=== PATIENT | female | born 1950 | race Caucasian/White ===

== ENCOUNTER 2018-04-18 13:17 | Emergency (ER) | payer MEDICARE, BC ==
--- OUTSIDE RECORDS SUMMARY | 2018-04-18 13:52 | XMS REPORT ---
:1950 External Reference #:[id number] Author Organization [facility] Address [address] [place] [address] Phone [phone] Care Team Providers Name Role Phone Demi Amaral NP Care Team Information Elevator Dispatcher Unavailable Payers Type Date Identification Numbers Payment Provider Subscriber Medicare Primary Effective: Policy Number: Medicare - [place] Deepika Boone 2015 [id number] [facility] PayID: [id number] [place] [address] Medigap Part B Policy Number: [id number] [facility] Deepika Boone Group Name: [place] [address] [address] PayID: [id number] [place] [address] Problems Date Description Provider Status Onset: 08/23/2011 Neck pain Lien Hess M.D. Active Onset: 08/23/2011 Generalized anxiety disorder Lien Hess M.D. Active Onset: 08/23/2011 Depressive disorder Lien Hess M.D. Active Onset: 08/23/2011 Osteoporosis Lien Hess M.D. 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 Cigarette Use Former Cigarette Smoker stopped early 's ETOH Use Occasionally consumes alcohol Recreational Drug Use Denies Drug Use Smoking Patient is a former smoker Daily Caffeine Consumes on average 1 cup of coffee per day Enjoy Exercising hikes, yoga Allergies, Adverse Reactions, Alerts Date Description Reaction Status Severity Comments 07/28/2011 Penicillin rash active 07/28/2011 Sulfa leukopenia active 08/23/2011 NSAIDs Rash active Mild to Moderate Medications Medication Date Status Form Strength Qnty SIG Indications Ordering Provider Naproxen 12/15 Active Tablets 500mg 180ta take 1 M54.2 bs tablet Sravanthi, twice a [employer] day, take with food Flaxseed Oil 09/17 Active Capsules 1000mg Sravanthi, [employer] Oxycodone-Acetami 01/06 Active Tablets 5-325mg 20tab 1 by mouth Francisco nophen s every 4-6 Heetderks, hours as MD needed severe pain Cyclobenzaprine 07/01 Active Tablets 10mg 60tab take 09/13 or M54.2 Marcia HCL s 1 tablet by Sravanthi, mouth three [employer] times a day as needed for muscle spasm (will cause tiredness) Zofran Odt 03/14 Active Tablets 4mg 20tab one by Marcia Dispers s mouth on Sravanthi, tongue up [employer] to three times a day as needed nausea Cetirizine HCL 03/14 Active Tablets 10mg one by Leonila mouth every P. Blegen, day for M.D. allergies Proctosol HC 02/27 Active Cream 2.5% 80gra apply to 455.4 Lien m affected MCong Hess, area tid M.D. Sumatriptan 08/23 Active Tablets 50mg 27tab Take 1 s Tablet AT , Start Of EKG TECHNICIAN Amigraine Wellbutrin SR Active Tablets 150mg 180ta 1 tab Marcia ER 12HR bs morning and Sravanthi, 1 tab in at [employer] night Lorazepam Active Tablets 1mg 270ta 1 by mouth F41.9 Demi bs three times Shortle, a day as EKG TECHNICIAN needed code a Vitamin D-3 Active Tablets 2000Unit 1 po daily Unknown Calcium Carbonate Active Tablets 600mg 2 po q am Multivitamins Active Tablets 1 po qd Vitamin C Active Tablets 1000mg 1 tab po daily Sertraline HCL Active Tablets 100mg 180ta take 2 Marcia bs tablet Sravanthi, daily [employer] Aishwarya [place] 06/28 Hx Capsules 100mg 45cap take 1 s capsule by Santos, - mouth 3 12/15 times per day as needed for cough Voltaren 04/26 Hx Gel 1% 300gm apply 4 grams to Sravanthi, - right ankle [employer] 09/17 4 times daily, do not exceed 16 grams/day Carafate 03/22 Hx Tablets 1gm 180ta take 1-2 K21.9 bs tablets Sravanthi, - every 4-6 [employer] 10/25 hours needed. Mobic 03/22 Hx Tablets 15mg 30tab Take one 530.81 Lien s pill po Koby Hess, - daily M.D. 07/01 Oxycodone-Acetami 03/13 Hx Tablets 5-325mg 1 PO Q 4-6 Unknown nop Hours prn - Severe Pain 07/01 (Rx By ER- #20) Naproxen 02/11 Hx Tablets 500mg 60tab Take one 719.44 DR santiago pill twice Sravanthi, - daily. [employer] 03/22 Custom Wrist 06/20 Hx 1unit Use as Lien Splint /2012 s directed. Koby Hess, - Dx: Pain in M.D. 07/01 the wrist and hand Naproxen Ec 05/25 Hx Tablets 500mg 60tab Take one 719.[address] santiago pill twice Koby Hess, - daily. M.D. 02/11 Cyclobenzaprine 09/22 Hx Tablets 5mg 30tab take one or 723.1 Lien HCL /2012 s two tablets Koby Hess, - every 6 M.D. 07/01 hours needed for muscle spasm Hydroxyzine HCL 04/21 Hx Tablets 25mg 60tab 1 or 2 po 989.5 Shawnti R. /2011 s qid prn Storm, - itching [employer] 07/01 Prednisone 01/10 Hx Tablets 20mg 10tab 2 tabs po 995.3 Marcia /2012 s for 5 days Jesse FishmanP-C 09/22 Tramadol HCL 08/23 Hx Tablets 50mg 60tab one 723.1 Lien s tramadol po Juan JoseCong Deshawn, - every 8 M.D. 03/14 hours needed Prednisone 08/10 Hx Tablets 10mg 42QS 6 tabs po 995.3 Lien qd x 2 Koby Hess, - days, 5 M.D. 08/23 tabs x 2 days, 4 tab x 2 days, 3 tabs x 2 days, 2 tabs x 2 days, 1 tab x 2 days take with food Robaxin 08/04 Hx Tablets 500mg 30tab take on tab 723.1 s po qid Sravanthi, - [employer] 08/23 Cyclobenzaprine 07/28 Hx Tablets 5mg 30tab 1-2 po tid 723.1 Marcia s for muscle Sravanthi, - spasm, january [employer] 08/04 cause drowsiness Naproxen 07/28 Hx Tablets 500mg 30tab take 1 723.1 s tablet bid, Sravanthi, - take with [employer] 08/23 Hydrocodone/Aceta 07/28 Hx Tablets 5-325mg 30thi 1-2 po 723.1 Marcia rty q4hrs prn Jesse FishmanP-C 08/23 Sucralfate Hx Tablets 1gm Take 2 po Unknown /0000 every am - 03/14 Sertraline HCL 00 Hx Tablets 50mg 30tab 1 po qd Unknown / s - 06/29 Seroquel Hx Tablets 50mg 90tab 1 tab po hs Marcia s Jesse Fishman [employer] 03/14 Imitrex 00 Hx Tablets 50mg 1 tab po Unknown /0000 - 07/01 Activella Hx Tablets 1-0.5mg 1 po qd Unknown / - 08/23 Lactaid 00 Hx 1 po prn Unknown / - 09/17 Pollinosan 00/00 Hx Unknown /0000 - 03/14 Wellbutrin XL 00 Hx Tablets 300mg 1 tablet by Unknown /0000 ER 24HR mouth every - in the 06/28 Aripiprazole 00/00 Hx Tablets 2mg 1 po qd Unknown /0000 - 01/16 Immunizations CPT Code Status Date Vaccine Lot # [id number] Given 12/15/2016 Pneumovax 23 (PPSV23) 65+ years or high risk 2 to [id number] 64 year old [address]6547 Given 07/05/2016 Influenza Vaccine High Dose PF [id number] 93524 Given 09/17/2015 Prevnar-13 Pneumococcal Conjugate Vaccine [id number] 97216 Given 07/17/2015 Influenza Virus Vaccine, Quadrivalent, 3 Yr > [id number] Quad, Preserv Free 91586 Given 07/01/2014 Zoster Vaccine [id number] 35115 Given 07/01/2014 Influenza Virus Vaccine, Quadrivalent, 3 Yr > [id number] Quad, Preserv Free 04398 Given 08/02/2013 Tdap (Adacel) [id number] 61014 Given 05/25/2013 Influenza Vaccine-Preservative Free 3 Yrs And [id number] Above 12625 Given 08/11/2012 Influenza Vaccine-Preservative Free 3 Yrs And [id number] Above 60023 Given 07/28/2011 Influenza Vaccine-Preservative Free 3 Yrs And [id number] Above 45897 Refused 03/08/2018 Influenza Virus Vaccine, Quadrivalent, Split, 6-35 Mo, PF Vital Signs Date Vital Result Comment 03/20/2018 Weight 157.00 lb Weight in kg's 71.215 BP Systolic 112 mmHg BP Diastolic 72 mmHg Heart Rate 92 /min Body Temperature 98.2 F Respiratory Rate 18 /min Height 67 inches 5'7" BMI (Body Mass Index) 24.6 kg/m2 O2 % BldC Oximetry 98 % 03/08/2018 Weight 158.00 lb Weight in kg's 71.669 BP Systolic 120 mmHg BP Diastolic 80 mmHg Heart Rate 96 /min Body Temperature 97.6 F Respiratory Rate 16 /min 10/25/2017 Weight 157.00 lb w/ boots Weight in kg's 71.215 BP Systolic 134 mmHg BP Diastolic 82 mmHg Heart Rate 79 /min Body Temperature 98.2 F Respiratory Rate 16 /min O2 % BldC Oximetry 98 % 12/15/2016 Weight 139.00 lb Weight in kg's 63.050 BP Systolic 110 mmHg BP Diastolic 60 mmHg Heart Rate 98 /min Body Temperature 97.8 F Respiratory Rate 18 /min Height 67 inches 5'7" BMI (Body Mass Index) 21.8 kg/m2 O2 % BldC Oximetry 97 % 07/05/2016 Weight 133.00 lb Weight in kg's 60.329 BP Systolic 100 mmHg BP Diastolic 70 mmHg Heart Rate 95 /min Body Temperature 97.4 F Respiratory Rate 12 /min O2 % BldC Oximetry 99 % 06/28/2016 Weight 136.00 lb Weight in kg's 61.690 BP Systolic 120 mmHg BP Diastolic 78 mmHg Heart Rate 85 /min Body Temperature 97.8 F Respiratory Rate 16 /min O2 % BldC Oximetry 99 % 09/17/2015 Weight 149.00 lb Weight in kg's 67.586 BP Systolic 110 mmHg BP Diastolic 74 mmHg Heart Rate 88 /min Height 67.5 inches 5'7.50" BMI (Body Mass Index) 23.0 kg/m2 01/06/2015 Weight 160.00 lb Weight in kg's 72.576 BP Systolic 122 mmHg BP Diastolic 76 mmHg Heart Rate 92 /min Body Temperature 98.4 F 07/04/2014 Weight 156.00 lb Weight in kg's 70.762 BP Systolic 112 mmHg BP Diastolic 70 mmHg Heart Rate 92 /min 07/01/2014 Weight 153.00 lb Weight in kg's 69.401 BP Systolic 118 mmHg BP Diastolic 80 mmHg Heart Rate 80 /min Height 67.25 inches 5'7.25" BMI (Body Mass Index) 23.8 kg/m2 03/22/2014 Weight 157.00 lb Weight in kg's 71.215 BP Systolic 118 mmHg BP Diastolic 62 mmHg Heart Rate 88 /min Body Temperature 98.0 F 03/14/2014 Weight 153.00 lb Weight in kg's 69.401 BP Systolic 132 mmHg BP Diastolic 88 mmHg Heart Rate 88 /min Body Temperature 96.5 F 02/11/2014 Weight 151.00 lb Weight in kg's 68.494 BP Systolic 112 mmHg BP Diastolic 70 mmHg Heart Rate 84 /min Body Temperature 98.0 F 05/25/2013 Weight 143.00 lb Weight in kg's 64.865 BP Systolic 110 mmHg BP Diastolic 74 mmHg Heart Rate 88 /min Body Temperature 97.1 F Height 67.25 inches 5'7.25" BMI (Body Mass Index) 22.2 kg/m2 10/26/2012 Weight 140.00 lb Weight in kg's 63.504 BP Systolic 130 mmHg BP Diastolic 76 mmHg Heart Rate 76 /min 10/20/2012 Weight 142.00 lb Weight in kg's 64.411 BP Systolic 114 mmHg BP Diastolic 70 mmHg Heart Rate 92 /min 10/16/2012 Weight 142.00 lb Weight in kg's 64.411 BP Systolic 118 mmHg BP Diastolic 82 mmHg Heart Rate 92 /min 10/09/2012 Weight 144.00 lb Weight in kg's 65.318 BP Systolic 128 mmHg BP Diastolic 70 mmHg Heart Rate 88 /min 10/06/2012 Weight 144.00 lb Weight in kg's 65.318 BP Systolic 114 mmHg BP Diastolic 74 mmHg Heart Rate 92 /min 10/02/2012 Weight 145.00 lb Weight in kg's 65.772 BP Systolic 106 mmHg BP Diastolic 64 mmHg Heart Rate 84 /min 09/25/2012 Weight 145.00 lb Weight in kg's 65.772 BP Systolic 124 mmHg BP Diastolic 80 mmHg Heart Rate 88 /min 09/22/2012 Weight 141.00 lb Weight in kg's 63.958 BP Systolic 140 mmHg BP Diastolic 84 mmHg Heart Rate 92 /min Body Temperature 97.4 F 04/21/2012 Weight 146.00 lb Weight in kg's 66.226 BP Systolic 108 mmHg BP Diastolic 80 mmHg Heart Rate 96 /min Body Temperature 98.7 F 01/11/2012 Weight 144.00 lb Weight in kg's 65.318 BP Systolic 110 mmHg BP Diastolic 60 mmHg Heart Rate 100 /min Body Temperature 97.7 F 08/23/2011 Weight 153.00 lb Weight in kg's 69.401 BP Systolic 140 mmHg BP Diastolic 70 mmHg Heart Rate 92 /min Height 67.75 inches 5'7.75" BMI (Body Mass Index) 23.4 kg/m2 08/18/2011 Weight 150.00 lb Weight in kg's 68.040 BP Systolic 134 mmHg BP Diastolic 78 mmHg Heart Rate 92 /min 08/10/2011 Weight 154.00 lb Weight in kg's 69.854 BP Systolic 128 mmHg BP Diastolic 76 mmHg Heart Rate 70 /min Body Temperature 98.7 F 08/04/2011 Weight 150.00 lb Weight in kg's 68.040 BP Systolic 140 mmHg BP Diastolic 80 mmHg Heart Rate 112 /min Body Temperature 97.2 F 07/28/2011 Weight 148.00 lb Weight in kg's 67.133 BP Systolic 122 mmHg BP Diastolic 80 mmHg Heart Rate 91 /min Last Menstrual Period 0 O2 % BldC Oximetry 99 % Results Test Date Test Result H/L Range Note CBC Auto Diff 10/25/2017 White Blood Count 3.7 10^3/uL 3.5-10.8 1 Red Blood Count 4.44 10^6/uL 4.0-5.4 1 Hemoglobin 14.0 g/dL 12.0-16.0 1 Hematocrit 42 % 35-47 1 Mean Corpuscular Volume 94 fL 80-97 1 Mean Corpuscular Hemoglobin 32 pg High 27-31 1 Mean Corpuscular HGB Conc 33 g/dL 31-36 1 Red Cell Distribution Width 13 % 10.5-15 1 Platelet Count 192 10^3/uL 150-450 1 Mean Platelet Volume 8 um3 7.4-10.4 1 Abs Neutrophils 2.2 10^3/uL 1.5-7.7 1 Abs Lymphocytes 1.1 10^3/uL 1.0-4.8 1 Abs Monocytes 0.3 10^3/uL 0-0.8 1 Abs Eosinophils 0.1 10^3/uL 0-0.6 1 Abs Basophils 0 10^3/uL 0-0.2 1 Abs Nucleated RBC 0 10^3/uL 1 Granulocyte % 60.2 % 38-83 1 Lymphocyte % 30.4 % 25-47 1 Monocyte % 7.2 % 1-9 1 Eosinophil % 1.8 % 0-6 1 Basophil % 0.4 % 0-2 1 Nucleated Red Blood Cells % 0.2 1 Lipid Profile (Trig/Chol/HDL) 10/25/2017 Triglycerides 99 mg/dL 1, 2 Cholesterol 192 mg/dL 1, 3 HDL Cholesterol 59.2 mg/dL 1, 4 LDL Cholesterol 113 mg/dL 1, 5 Comp Metabolic Panel 10/25/2017 Sodium 139 mmol/L 133-145 1 Potassium 4.4 mmol/L 3.5-5.0 1 Chloride 104 mmol/L 101-111 1 Co2 Carbon Dioxide 28 mmol/L 22-32 1 Anion Gap 7 mmol/L 2-11 1 Glucose 89 mg/dL 70-100 1 Blood Urea Nitrogen 12 mg/dL 6-24 1 Creatinine 0.86 mg/dL 0.51-0.95 1 BUN/Creatinine Ratio 14.0 8-20 1 Calcium 9.6 mg/dL 8.6-10.3 1 Total Protein 6.7 g/dL 6.4-8.9 1 Albumin 4.3 g/dL 3.2-5.2 1 Globulin 2.4 g/dL 2-4 1 Albumin/Globulin Ratio 1.8 1-3 1 Total Bilirubin 0.30 mg/dL 0.2-1.0 1 Alkaline Phosphatase 66 U/L 34-104 1 Alt 10 U/L 7-52 1 Ast 18 U/L 13-39 1 Egfr Non- 65.8 >60 1 Egfr 84.6 >60 1, 6 Laboratory test 10/25/2017 TSH (Thyroid 1.71 mcIU/mL 0.34-5.60 1, 7 finding Stimulating Horm) CBC Auto Diff 12/15/2016 White Blood Count 3.2 10^3/uL Low 3.5-10.8 8 Red Blood Count 4.34 10^6/uL 4.0-5.4 Hemoglobin 13.5 g/dL 12.0-16.0 Hematocrit 41 % 35-47 Mean Corpuscular Volume 95 fL 80-97 Mean Corpuscular Hemoglobin 31 pg 27-31 Mean Corpuscular HGB Conc 33 g/dL 31-36 Red Cell Distribution Width 13 % 10.5-15 Platelet Count 164 10^3/uL 150-450 Mean Platelet Volume 9 um3 7.4-10.4 Abs Neutrophils 2.0 10^3/uL 1.5-7.7 Abs Lymphocytes 0.9 10^3/uL Low 1.0-4.8 Abs Monocytes 0.3 10^3/uL 0-0.8 Abs Eosinophils 0.1 10^3/uL 0-0.6 Abs Basophils 0 10^3/uL 0-0.2 Abs Nucleated RBC 0 10^3/uL Granulocyte % 61.0 % 38-83 Lymphocyte % 27.8 % 25-47 Monocyte % 9.1 % High 1-9 Eosinophil % 1.6 % 0-6 Basophil % 0.5 % 0-2 Nucleated Red Blood Cells % 0 Comp Metabolic Panel 12/15/2016 Sodium 137 mmol/L 133-145 Potassium 4.4 mmol/L 3.5-5.0 Chloride 104 mmol/L 101-111 Co2 Carbon Dioxide 29 mmol/L 22-32 Anion Gap 4 mmol/L 2-11 Glucose 76 mg/dL 70-100 Blood Urea Nitrogen 21 mg/dL 6-24 Creatinine 0.93 mg/dL 0.51-0.95 BUN/Creatinine Ratio 22.6 High 8-20 Calcium 9.0 mg/dL 8.6-10.3 Total Protein 6.3 g/dL Low 6.4-8.9 Albumin 4.1 g/dL 3.2-5.2 Globulin 2.2 g/dL 2-4 Albumin/Globulin Ratio 1.9 1-3 Total Bilirubin 0.50 mg/dL 0.2-1.0 Alkaline Phosphatase 62 U/L 34-104 Alt 9 U/L 7-52 Ast 15 U/L 13-39 Egfr Non- 60.3 >60 Egfr 77.6 >60 9 Laboratory test 12/15/2016 TSH (Thyroid Stim Horm) 0.98 mcIU/mL 0.34- 5.60 10 finding Lipid Profile 12/15/2016 Triglycerides 84 mg/dL 11 (Trig/Chol/HDL) Cholesterol 176 mg/dL 12 HDL Cholesterol 50.5 mg/dL 13 LDL Cholesterol 109 mg/dL 14 CBC Auto Diff 06/28/2016 White Blood Count 5.8 10^3/uL 3.5-10.8 15 Red Blood Count 4.76 10^6/uL 4.0-5.4 15 Hemoglobin 15.0 g/dL 12.0-16.0 15 Hematocrit 45 % 35-47 15 Mean Corpuscular Volume 95 fL 80-97 15 Mean Corpuscular Hemoglobin 32 pg High 27-31 15 Mean Corpuscular HGB Conc 33 g/dL 31-36 15 Red Cell Distribution Width 13 % 10.5-15 15 Platelet Count 263 10^3/uL 150-450 15 Mean Platelet Volume 9 um3 7.4-10.4 15 Abs Neutrophils 3.8 10^3/uL 1.5-7.7 15 Abs Lymphocytes 1.5 10^3/uL 1.0-4.8 15 Abs Monocytes 0.3 10^3/uL 0-0.8 15 Abs Eosinophils 0.1 10^3/uL 0-0.6 15 Abs Basophils 0 10^3/uL 0-0.2 15 Abs Nucleated RBC 0 10^3/uL 15 Granulocyte % 65.5 % 38-83 15 Lymphocyte % 26.2 % 25-47 15 Monocyte % 6.0 % 1-9 15 Eosinophil % 1.8 % 0-6 15 Basophil % 0.5 % 0-2 15 Nucleated Red Blood Cells % 0 15 Comp Metabolic Panel 06/28/2016 Sodium 136 mmol/L 133-145 15 Potassium 4.5 mmol/L 3.5-5.0 15 Chloride 103 mmol/L 101-111 15 Co2 Carbon Dioxide 26 mmol/L 22-32 15 Anion Gap 7 mmol/L 2-11 15 Glucose 92 mg/dL 70-100 15 Blood Urea Nitrogen 19 mg/dL 6-24 15 Creatinine 0.82 mg/dL 0.51-0.95 15 BUN/Creatinine Ratio 23.2 High 8-20 15 Calcium 9.4 mg/dL 8.6-10.3 15 Total Protein 6.7 g/dL 6.4-8.9 15 Albumin 4.1 g/dL 3.2-5.2 15 Globulin 2.6 g/dL 2-4 15 Albumin/Globulin Ratio 1.6 1-3 15 Total Bilirubin 0.30 mg/dL 0.2-1.0 15 Alkaline Phosphatase 80 U/L 34-104 15 Alt 10 U/L 7-52 15 Ast 15 U/L 13-39 15 Egfr Non- 70.0 >60 15 Egfr 90.0 >60 15, 16 Laboratory test 06/28/2016 TSH (Thyroid 0.70 mcIU/mL 0.34-5.60 15, 17 finding Stimulating Horm) Free T4 0.85 ng/dL 0.61-1.12 15, 18 C Reactive Protein 5.48 mg/L High < 5.00 15, 19 Hemoglobin A1c 5.5 % Less than 6.0 15, 20 Vitamin B12 595 pg/mL 180-914 15, 21 Folate 15.00 ng/mL >3.99 15, 22 CBC Auto Diff 09/17/2015 White Blood Count 4.2 10^3/uL 3.5-10.8 Red Blood Count 4.78 10^6/uL 4.0-5.4 Hemoglobin 15.2 g/dL 12.0-16.0 Hematocrit 46 % 35-47 Mean Corpuscular Volume 97 fL 80-97 Mean Corpuscular Hemoglobin 32 pg High 27-31 Mean Corpuscular HGB Conc 33 g/dL 31-36 Red Cell Distribution Width 14 % 10.5-15 Platelet Count 181 10^3/uL 150-450 Mean Platelet Volume 8 um3 7.4-10.4 Abs Neutrophils 2.7 10^3/uL 1.5-7.7 Abs Lymphocytes 1.0 10^3/uL 1.0-4.8 Abs Monocytes 0.3 10^3/uL 0-0.8 Abs Eosinophils 0.1 10^3/uL 0-0.6 Abs Basophils 0 10^3/uL 0-0.2 Abs Nucleated RBC 0 10^3/uL Granulocyte % 65.7 % 38-83 Lymphocyte % 24.0 % Low 25-47 Monocyte % 7.3 % 1-9 Eosinophil % 2.5 % 0-6 Basophil % 0.5 % 0-2 Nucleated Red Blood Cells % 0.1 Comp Metabolic Panel 09/17/2015 Sodium 136 mmol/L 133-145 Potassium 4.2 mmol/L 3.5-5.0 Chloride 102 mmol/L 101-111 Co2 Carbon Dioxide 28 mmol/L 22-32 Anion Gap 6 mmol/L 2-11 Glucose 79 mg/dL 70-100 Blood Urea Nitrogen 18 mg/dL 6-24 Creatinine 1.00 mg/dL High 0.51-0.95 BUN/Creatinine Ratio 18.0 8-20 Calcium 9.6 mg/dL 8.6-10.3 Total Protein 6.9 g/dL 6.4-8.9 Albumin 4.5 g/dL 3.2-5.2 Globulin 2.4 g/dL 2-4 Albumin/Globulin Ratio 1.9 1-3 Total Bilirubin 0.60 mg/dL 0.2-1.0 Alkaline Phosphatase 71 U/L 34-104 Alt 10 U/L 7-52 Ast 16 U/L 13-39 Egfr Non- 55.6 >60 Egfr 71.6 >60 23 Lipid Profile (Trig/Chol/HDL) 09/17/2015 Triglycerides 73 mg/dL 24 Cholesterol 230 mg/dL 25 HDL Cholesterol 70.6 mg/dL 26 LDL Cholesterol 145 mg/dL 27 Lipid Profile (Trig/Chol/HDL) 07/01/2014 Triglycerides 66 mg/dL 28 Cholesterol 185 mg/dL 29 HDL Cholesterol 63.0 mg/dL 30 LDL Cholesterol 109 mg/dL 31 Liver Function Panel 07/01/2014 Total Protein 6.4 g/dL 6.4-8.9 Albumin 4.3 g/dL 3.2-5.2 Globulin 2.1 g/dL 2-4 Albumin/Globulin Ratio 2.0 1-3 Total Bilirubin 0.50 mg/dL 0.2-1.0 Direct Bilirubin 0.10 mg/dL 0.03-0.18 Indirect Bilirubin 0.4 mg/dL 0.3-1.0 Alkaline Phosphatase 73 U/L 34-104 Alt 13 U/L 7-52 Ast 18 U/L 13-39 Laboratory test finding 07/01/2014 TSH (Thyroid Stimulating 1.01 IU/mL 0.34-5.60 Horm) Vitamin D 1,25-Dihydroxy 57 pg/mL 18-78 32 Basic Metabolic Panel 07/01/2014 Sodium 140 mmol/L 133-145 Potassium 4.2 mmol/L 3.7-5.6 Chloride 109 mmol/L 101-111 Co2 Carbon Dioxide 25 mmol/L 22-32 Anion Gap 6 mmol/L 2-11 Glucose 99 mg/dL 70-100 Blood Urea Nitrogen 21 mg/dL 6-24 Creatinine 0.87 mg/dL 0.51-0.95 BUN/Creatinine Ratio 24.1 High 8-20 Calcium 9.2 mg/dL 8.6-10.3 Egfr Non- 65.8 >60 Egfr 84.6 >60 33 Laboratory test 07/01/2014 Hepatitis C Antibody Nonreactive Nonreactive finding CBC Auto Diff 07/01/2014 White Blood Count 2.6 10^3/uL Low 4.8-10.8 Red Blood Count 4.73 10^6/uL 4.0-5.4 Hemoglobin 15.1 g/dL 12.0-16.0 Hematocrit 46 % 35-47 Mean Corpuscular Volume 96 fL 80-97 Mean Corpuscular Hemoglobin 32 pg High 27-31 Mean Corpuscular HGB Conc 33 g/dL 31-36 Red Cell Distribution Width 13 % 10.5-15 Platelet Count 186 10^3/uL 150-450 Mean Platelet Volume 9 um3 7.4-10.4 Abs Neutrophils 1.6 10^3/uL 1.5-7.7 Abs Lymphocytes 0.7 10^3/uL Low 1.0-4.8 Abs Monocytes 0.2 10^3/uL 0-0.8 Abs Eosinophils 0.1 10^3/uL 0-0.6 Abs Basophils 0 10^3/uL 0-0.2 Abs Nucleated RBC 0 10^3/uL Granulocyte % 61.0 % 38-83 Lymphocyte % 27.4 % 25-47 Monocyte % 9.1 % High 1-9 Eosinophil % 2.0 % 0-6 Basophil % 0.5 % 0-2 Nucleated Red Blood Cells % 0.1 CBC Auto Diff 01/11/2012 White Blood Count 4.0 CUMM Low 4.8-10.8 34 Red Cell Count 4.77 CUMM 4.2-5.4 34 Hemoglobin 15.6 g/dL 12.0-16.0 34 Hematocrit 46 % 35-47 34 Mean Corpuscular Volume 96 um3 79-97 34 Mean Corpuscular Hemoglob 33 pg High 27-31 34 Mean Corpuscular HGB Cone 34 g/dL 32-36 34 Redcell Distribution WDTH 14 % 10.5-15 34 Platelet Count 178 CUMM 150-450 34 Mean Platelet Volume 9.2 um3 7.4-10.4 34 Gran % 76.2 % 38-83 34 Lymph % 13.4 % Low 25-47 34 Mononuclear % 6.8 % 1-9 34 Eosinophil % 3.3 % 0-6 34 Basophil % 0.3 % 0-2 34 Abs Lymphs 0.5 Low 1.0-4.8 34 Abs Mononuclear 0.3 0-0.8 34 Absolute Neutrophil Count 3.1 1.5-7.7 34 Abs Eosinophils 0.1 0-0.6 34 Abs Basophils 0 0-0.2 34, 35 Lipid Profile (Trig/Chol/HDL) 01/11/2012 Triglyceride 44 mg/dL 40-200 34 Cholesterol 178 mg/dL Less Than 200 34, 36 High Density Lipoprotein 63 mg/dL High 40-60 34, 37 Low Density Lipoprotein 106 mg/dL High Less Than 100 34, 38 Cholesterol/HDL Ratio 2.83 AVERAGE 1-4.44 34 Liver Function Panel 01/11/2012 Total Protein 6.5 GM/DL 6.2-8.1 34 Albumin 4.1 GM/DL 3.2-5.2 34 Globulin 2.4 GM/DL 2-4 34 Albumin/Globulin Ratio 1.7 1-3 34 Bilirubin Total 0.7 mg/dL 0.4-1.5 34, 39 Bilirubin Direct 0.1 mg/dL 0.1-0.5 34 Indirect Bilirubin 0.6 mg/dL 0.3-1.0 34, 40 Alkaline Phosphatase 66 U/L 30-110 34 Alt (SGPT) 20 U/L 14-54 34 Ast (Sgot) 26 U/L 12-42 34 Laboratory test finding 01/11/2012 TSH 1.41 MIU/ML 0.34-5.60 34 Vitamin D, 1,25 Dihydroxy 54 pg/mL 18-78 34, 41 Basic Metabolic Panel 01/11/2012 Sodium 140 mmol/L 135-145 34 Potassium 4.6 mmol/L 3.5-5.0 34 Chloride 106 mmol/L 101-111 34 Co2 (Carbon Dioxide) 30.0 mmol/L 22-32 34 Anion Gap 4.0 mmol/L 2-11 34, 42 Glucose 93 mg/dL 70-100 34 BUN 18 mg/dL 6-24 34 Creatinine 1.0 mg/dL 0.50-1.40 34 One Over Creatinine 1.00 34 BUN/Creatinine Ratio 18.0 8-20 34 Calcium 9.4 mg/dL 8.1-9.9 34 eGFR Non- 56.4 > 60 34 eGFR 72.5 > 60 34, 43 Urine DIP 08/23/2011 Leukocytes NEG Neg Urine Nitrites NEG Neg Urine pH 5 5-6 Total Protein, Urine NEG Neg Urine Glucose NORM Norm Urine Ketones NEG Neg Urobilinogen NORM Norm Urine Bilirubin NEG Neg Urine Blood NEG Neg Specific [place] N/A Low 1.01-1.02 Laboratory test finding 08/10/2011 Sedimentation Rate 5 MM/HR 0-20 CBC 08/10/2011 WBC 4.2 x10E3/uL Low 4.3-10.9 RBC 4.30 x10E6/uL 3.80-5.30 Hemoglobin 13.6 g/dL 11.8-15.8 Hematocrit 41.3 % 35.0-47.0 MCV 96.0 fl 82.0-98.0 MCH 31.6 pg 27.5-33.5 MCHC 32.9 g/dL 32.0-36.0 RDW 12.8 % 11.5-14.5 Platelet Count 196 x10E3/uL 130-400 MPV 10.3 fl 6.5-10.5 Segmented Neutrophils 57.7 % 44.0-74.0 Lymphocytes 31.7 % 15.0-45.0 Monocytes 8.2 % 2.0-13.0 Eosinophils 2.2 % 0.0-6.0 Basophils 0.2 % 0.0-2.0 Neutrophil Absolute 2.4 x10E3/uL 1.4-7.0 Lymphocytes Absolute 1.3 x10E3/uL 1.0-3.4 Monocyte Absolute 0.3 x10E3/uL 0.2-1.0 Eosinophil Absolute 0.1 x10E3/uL 0.0-0.5 Basophil Absolute 0.0 x10E3/uL 0.0-0.2 Egfr (Calculated) 08/10/2011 Estimated GFR (CALCULATED) Egfr >60 44 Egfr, -Welsh >60 45 Comprehensive Metabolic 08/10/2011 Glucose 106 mg/dL High 70-100 BUN 16 mg/dL 4-18 Creatinine, Serum 0.81 mg/dL 0.50-1.10 Sodium 138 mmol/L 136-146 Potassium 4.4 mmol/L 3.5-5.3 Chloride 107 mmol/L 98-110 Carbon Dioxide 22 mmol/L 20-32 Albumin 4.2 g/dL 3.5-4.7 Protein, Total 6.5 g/dL 6.4-8.3 Calcium 9.2 mg/dL 8.4-10.4 Alkaline Phosphatase 55 U/L 10-118 Sgot (Ast) 67 U/L High 3-40 SGPT (Alt) 89 U/L High 7-50 Bilirubin, Total 0.30 mg/dL 0.30-1.20 Laboratory test finding 08/10/2011 Antinuclear Abs, Ifa Negative 46 Laboratory test finding 07/01/2011 Clotest NEGATIVE 1 [id number] Desirable: <150 Borderline High: 150-199 High: 200-499 Very High: >500 3 Desirable: <200 Borderline High: 200-239 High: >239 4 Low: <40 Desirable: 40-60 High: >60 5 Desirable: <100 Near Optimal: 100-129 Borderline High: 130-159 High: 160-189 Very High: >189 6 Because ethnic data is not always readily available, this report includes an eGFR for both -Americans and non- Americans. The National Kidney Disease Education Program (NKDEP) does not endorse the use of the MDRD equation for patients that are not between the ages of 18 and 70, are , have extremes of body size, muscle mass, or nutritional status, or are non- or non-. According to the [employer], irrespective of diagnosis, the stage of the disease is based on the level of kidney function: Stage Description GFR(mL/min/1.73 m(2)) 1 Kidney damage with normal or decreased GFR 90 2 Kidney damage with mild decrease in GFR 60-89 3 Moderate decrease in GFR 30-59 4 Severe decrease in GFR 15-29 5 Kidney failure <15 (or dialysis) 7 [id number] Verified by smear review. --- 12/15/16 1751 --- WBC previously reported as: 3.2 L 10 3/ul 9 Because ethnic data is not always readily available, this report includes an eGFR for both -Americans and non- Americans. The National Kidney Disease Education Program (NKDEP) does not endorse the use of the MDRD equation for patients that are not between the ages of 18 and 70, are , have extremes of body size, muscle mass, or nutritional status, or are non- or non-. According to the National Kidney Foundation, irrespective of diagnosis, the stage of the disease is based on the level of kidney function: Stage Description GFR(mL/min/1.73 m(2)) 1 Kidney damage with normal or decreased GFR 90 2 Kidney damage with mild decrease in GFR 60-89 3 Moderate decrease in GFR 30-59 4 Severe decrease in GFR 15-29 5 Kidney failure <15 (or dialysis) 10 [id number] 11 Desirable <150 Borderline high 150-199 High 200-499 Very High >500 12 Desirable <200 Borderline high 200-239 High >239 13 Low <40 Desirable: 40-60 High: >60 14 Desirable: <100 mg/dL Near Optimal: 100-129 mg/dL Borderline High: 130-159 mg/dL High: 160-189 mg/dL Very High: >189 mg/dL 15 [id number] 16 Because ethnic data is not always readily available, this report includes an eGFR for both -Americans and non- Americans. The National Kidney Disease Education Program (NKDEP) does not endorse the use of the MDRD equation for patients that are not between the ages of 18 and 70, are , have extremes of body size, muscle mass, or nutritional status, or are non- or non-. According to the National Kidney Foundation, irrespective of diagnosis, the stage of the disease is based on the level of kidney function: Stage Description GFR(mL/min/1.73 m(2)) 1 Kidney damage with normal or decreased GFR 90 2 Kidney damage with mild decrease in GFR 60-89 3 Moderate decrease in GFR 30-59 4 Severe decrease in GFR 15-29 5 Kidney failure <15 (or dialysis) 17 [id number] 19 Acute inflammation: >10.00 20 Therapeutic target for the treatment of diabetes Mellitus patients is <7% HBA1C, and in selective patients <6.0%.Please refer to [place] [employer] Diabetic care guidelines for further information. 21 Normal Range 180 to 914 Indeterminate Range 145 to 180 Deficient Range <145 22 [id number] 23 Because ethnic data is not always readily available, this report includes an eGFR for both -Americans and non- Americans. The National Kidney Disease Education Program (NKDEP) does not endorse the use of the MDRD equation for patients that are not between the ages of 18 and 70, are , have extremes of body size, muscle mass, or nutritional status, or are non- or non-. According to the National Kidney Foundation, irrespective of diagnosis, the stage of the disease is based on the level of kidney function: Stage Description GFR(mL/min/1.73 m(2)) 1 Kidney damage with normal or decreased GFR 90 2 Kidney damage with mild decrease in GFR 60-89 3 Moderate decrease in GFR 30-59 4 Severe decrease in GFR 15-29 5 Kidney failure <15 (or dialysis) 24 Desirable <150 Borderline high 150-199 High 200-499 Very High >500 25 Desirable <200 Borderline high 200-239 High >239 26 Low <40 Desirable: 40-60 High: >60 27 Desirable: <100 mg/dL Near Optimal: 100-129 mg/dL Borderline High: 130-159 mg/dL High: 160-189 mg/dL Very High: >189 mg/dL 28 Desirable <150 Borderline high 150-199 High 200-499 Very High >500 29 Desirable <200 Borderline high 200-239 High >239 30 Low <40 Desirable: 40-60 High: >60 31 Desirable <100 Near Optimal 100-129 Borderline high 130-159 High 160-189 Very High >189 32 Test Performed by: [facility] [address] [place] [address] Stationary Engineer Refrigeration: Te Ansari M.D. 33 Because ethnic data is not always readily available, this report includes an eGFR for both -Americans and non- Americans. The National Kidney Disease Education Program (NKDEP) does not endorse the use of the MDRD equation for patients that are not between the ages of 18 and 70, are , have extremes of body size, muscle mass, or nutritional status, or are non- or non-. According to the National Kidney Foundation, irrespective of diagnosis, the stage of the disease is based on the level of kidney function: Stage Description GFR(mL/min/1.73 m(2)) 1 Kidney damage with normal or decreased GFR 90 2 Kidney damage with mild decrease in GFR 60-89 3 Moderate decrease in GFR 30-59 4 Severe decrease in GFR 15-29 5 Kidney failure <15 (or dialysis) 34 NONFASTING 35 Lymphopenia % 36 CHOLESTEROL INTERPRETATION: Desirable: Less than 200 MG/DL Borderline-High Risk: 200-239 MG/DL High-Risk: 240 MG/DL and over 37 HDL INTERPRETATION: Undesirable: High Risk: Less than 40 MG/DL Desirable: Low Risk: Greater than 60 MG/DL 38 LDL INTERPRETATION: Low Risk Optimal Level: LDL Less than 100 MG/DL Near or Above Optimal: LDL 100-129 MG/DL Borderline High Risk: LDL 130-159 MG/DL High Risk: LDL 160-189 MG/DL Very High Risk: LDL Greater than 189 MG/DL 39 A metabolite of Naproxen, O-desmethylnaproxen, has been shown to interfere with the Jendrassik-Tolar method for measuring total bilirubin. Samples from patients who have taken Naproxen have shown spurious elevation in total bilirubin levels. 40 Please note updated reference range, effective 04/02/10 41 Test Performed by: [facility] [address] [place] [id number] Stationary Engineer Refrigeration: Kade R. Cockerill, III, M.D. 42 Anion gap measurement may be of limited value in the presence of any alkalosis, especially in a combined acid base disorder. . 43 Because ethnic data is not always readily available, this report includes an eGFR for both -Americans and non- Americans. The National Kidney Disease Education Program (NKDEP) does not endorse the use of the MDRD equation for patients that are not between the ages of 18 and 70, are , have extremes of body size, muscle mass, or nutritional status, or are non- or non-. According to the National Kidney Foundation, irrespective of diagnosis, the stage of the disease is based on the level of kidney function: Stage Description GFR(mL/min/1.73 m(2)) 1 Kidney damage with normal or decreased GFR 90 2 Kidney damage with mild decrease in GFR 60-89 3 Moderate decrease in GFR 30-59 4 Severe decrease in GFR 15-29 5 Kidney failure <15 (or dialysis) 44 >59 mL/min/1.73m2 45 >59 mL/min/1.73m2 Note: Persistent reduction for 3 months or more in an eGFR <60 mL/min/1.73m2 defines CKD. Patients with eGFR values >=60 mL/min/1.73m2 may also have CKD if evidence of persistent proteinuria is present. Additional information may be found at www.kidney.org/professionals/kdoqi. 46 Negative <1:80 Borderline 1:80 Positive >1:80 Procedures Date CPT Code Description Status Comment 07/04/2014 05432 Acupuncture One Or More Completed Needle W/Out Electrical Stim Initial 1510/26/2012 70472 Acupuncture One Or More Completed Needle W/Out Electrical Stim Initial 10/20/2012 12715 Acupuncture One Or More Completed Needle W/Out Electrical Stim Initial 1510/16/2012 77641 Acupuncture One Or More Completed Needle W/Out Electrical Stim Initial 10/09/2012 93437 Acupuncture One Or More Completed Needle W/Out Electrical Stim Initial 1510/06/2012 57321 Acupuncture One Or More Completed Needle W/Out Electrical Stim Initial 1510/02/2012 92290 Acupuncture One Or More Completed Needle W/Out Electrical Stim Initial 1509/25/2012 46913 Acupuncture One Or More Completed Needle W/Out Electrical Stim Initial 15MI 09/12/2012 Mammogram Completed Normal- 3 months ago 201008/12/2011 Bone Mineral Density Test Completed Mild oseopenia in all three areas scanned 09/12/2007 Colonoscopy Completed 2007- repeat in 2018 Encounters Type Date Location Provider CPT E/M Dx Office Visit 03/08/2018 4:45p [place] [address] M54.5 Office Visit 10/25/2017 2:30p Main Office DEVENDRA Soto 39087 F41.9 Z82.49 Office Visit 12/15/2016 8:00a Main Office DEVENDRA Soto G0438 Z00.00 F41.9 F32.9 M81.8 Z82.49 Z12.31 Z23 Office Visit 07/05/2016 9:30a Main Office DEVENDRA Soto 41987 J06.9 Z23 Office Visit 06/28/2016 1:00p [place] [address] J06.9 Office Visit 01/06/2015 2:15p Main Office DEVENDRA Soto 09562 726.19 Office Visit 07/01/2014 8:30a Main Office Lien Hess M.D. 72992 V70.0 311 733.09 794.8 995.3 V04.81 V05.8 Office Visit 03/22/2014 11:30a Main Office Lien Hess M.D. 73839 719.41 723.1 V70.0 530.81 Office Visit 03/14/2014 12:15p Main Office Leonila Sanders M.D. 05831 719.41 723.1 Office Visit 02/11/2014 4:30p Main Office DEVENDRA Soto 66608 845.09 Office Visit 05/25/2013 11:45a Main Office Lien Hess M.D. 68911 719.43 719.44 V04.81 Office Visit 09/22/2012 3:00p Main Office Lien Hess M.D. 45242 723.1 728.85 Office Visit 04/21/2012 3:30p Main Office Heidi CruzOMARP-C 32352 989.5 Office Visit 02/28/2012 3:45p Main Office Lien Hess M.D. 94402 733.90 455.4 733.09 Office Visit 01/11/2012 9:00a Main Office JOSE Soto-C 80546 995.3 995.3 780.79 780.79 Office Visit 08/23/2011 8:00a Main Office Lien Hess M.D. 36370 V70.0 723.1 794.8 733.09 Office Visit 08/18/2011 9:00a Main Office JOSE Soto-C 82145 723.1 724.5 Office Visit 08/10/2011 3:00p Main Office OMAR SotoP-C 00628 995.3 Office Visit 08/04/2011 9:30a Main Office OMAR SotoP-C 24496 723.1 728.9 Office Visit 07/28/2011 3:00p Main Office Marcia Fishman MANAGER OF SOFTWARE-C 35212 723.1 724.5 728.9 V04.81 Plan of Care 03/20/2018 - Demi Amaral NPM54.5 Low back painComments:No acute concerns today.Reviewed Xray with patient. 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
[2018-04-18] MEDS ORDERED: oxyCODONE/Acetamin 5/325 MG* TAB PO ONE (15:30)
--- NOTE | 2018-04-18 16:23 | RAD ---
Indication: Back pain. CT of the thoracic spine was obtained in the axial plane. Sagittal and coronal reconstructed images were obtained. There is diffuse osteopenia of the thoracic spine. No evidence of compression fracture is noted. Spinal canal appears to be intact. There appears to be some degenerative disc disease at T8-T9, T7-T8, T6-T7, T5-T6, T4-T5. Mild ventral osteophyte formation is noted. Spinal canal is not encroached upon. Lung bases demonstrate no pleural fluid, nodules or masses. IMPRESSION: No compression fracture of the thoracic spine is noted. Mild degenerative disc disease is noted in the mid to upper thoracic spine.
--- NOTE | 2018-04-18 16:26 | RAD ---
Indication: Back pain. CT of the lumbar spine was obtained in the axial plane. Sagittal and coronal reconstructed images were obtained. There is compression of approximately 25% of the L1 vertebra superior endplate. A small retropulsed fragment is noted with minimal retropulsion of approximately 3 mm. This is unchanged in position since March 24, 2018. This was also on prior x-ray dated March 09, 2018. IMPRESSION: Approximately 25% compression L5 vertebra superior endplate with 2 mm retropulsion of the superior fragments. This is similar to degree when compared to previous exam of March 24, 2018.
[2018-04-18 17:27] VITALS: BP 140/94
--- NOTE | 2018-04-18 17:29 | ED ---
Back Pain - HPI Summary HPI Summary: Patient is a 67-year-old female with a history of L5 compression fracture 25% with superior endplate retropulsion which occurred approximately 5 weeks ago presenting with worsening back pain since she pulled her back last week while walking her dog. She is currently involved in PT and has seen her doctor for this. She would not like surgery and has consulted with a surgeon. She is feeling she reinjured the area and is requesting an MRI. Denies any weakness, foot drop, numbness or tingling, bladder or bowel dysfunction. She endorses radiculopathy to the left upper thigh without numbness and tingling. She has been using hydrocodone at home with minimal relief. - History of Current Complaint Chief Complaint: EDBackInjuryPain Stated Complaint: BACK INJURY Time Seen by Provider: 04/18/18 14:11 Hx Obtained From: Patient Onset/Duration: Sudden Onset Onset/Duration: Started Weeks Ago - 5 weeks ago Timing: Constant Back Pain Location: Is Discrete @ - mid low back with radiation to the left upper leg Severity Initially: Moderate Severity Currently: Moderate Pain Intensity: 8 Pain Scale Used: 0-10 Numeric Character: Aching Alleviating Symptom(s): Rest Associated Signs And Symptoms: Negative: Swelling, Redness, Bruising - Risk Factors AAA Risk Factors: Negative TAD Risk Factors: Negative Cauda Equina Risk Factors: Negative Epidural Abscess Risk Factors: Negative - Allergies/Home Medications Allergies/Adverse Reactions: Allergies Allergy/AdvReac Type Severity Reaction Status Date / Time ibuprofen Allergy Intermediate Rash Verified 04/18/18 17:01 Penicillins Allergy Intermediate Rash Verified 04/18/18 17:01 Sulfa (Sulfonamide Allergy Intermediate See Comment Verified 04/18/18 17:01 Antibiotics) Home Medications: Home Medications Percocet 5/325 TAB* 1 tab PO Q4HR PRN 04/18/18 [History Confirmed 04/18/18] Tylenol TAB* 650 mg PO Q6HR PRN 04/18/18 [History Confirmed 04/18/18] PMH/Surg Hx/FS Hx/Imm Hx Previously Healthy: Yes Endocrine/Hematology History: Denies: Hx Diabetes Cardiovascular History: Denies: Hx Hypertension, Hx Pacemaker/ICD Musculoskeletal History: Reports: Hx Osteoporosis - MEDS FOR 18 YEARS Denies: Hx Rheumatoid Arthritis Sensory History: Denies: Hx Hearing Aid Psychiatric History: Denies: Hx Panic Disorder - Surgical History Surgery Procedure, Year, and Place: endometrial polyp removal 2 years ago. c- section - Immunization History Hx Pertussis Vaccination: No Immunizations Up to Date: Unable to Obtain/Confirm Infectious Disease History: No Infectious Disease History: Reports: Hx Shingles Denies: Traveled Outside the [place] in Last 30 Days - Social History Occupation: Unemployed Lives: With Family Alcohol Use: Rare Substance Use Type: Reports: None Smoking Status (MU): Former Smoker Review of Systems Constitutional: Negative Negative: Fever, Chills, Fatigue, Skin Diaphoresis Negative: Palpitations, Chest Pain Negative: Shortness Of Breath, Cough Negative: Abdominal Pain, Vomiting, Diarrhea, Nausea Genitourinary: Negative Positive: no symptoms reported, see HPI Positive: Arthralgia Neurological: Negative All Other Systems Reviewed And Are Negative: Yes Physical Exam Triage Information Reviewed: Yes Vital Signs On Initial Exam: Initial Vitals Temp Pulse Resp BP Pulse Ox 97.3 F 90 16 177/100 98 04/18/18 13:22 04/18/18 13:22 04/18/18 13:22 04/18/18 13:22 04/18/18 13:22 Vital Signs Reviewed: Yes Appearance: Positive: Well-Appearing, Well-Nourished Skin: Positive: Warm, Skin Color Reflects Adequate Perfusion Head/Face: Positive: Normal Head/Face Inspection Eyes: Positive: EOMI, RICKY, Conjunctiva Clear Neck: Positive: Nontender, No Lymphadenopathy Respiratory/Lung Sounds: Positive: Clear to Auscultation, Breath Sounds Present Cardiovascular: Positive: RRR, Pulses are Symmetrical in both Upper and Lower Extremities Musculoskeletal: Positive: Pain @ - throughout lower back radiating to the R leg. Negative: Edema Left, Edema Right Neurological: Positive: Sensory/Motor Intact, Speech Normal Psychiatric: Positive: Normal, Affect/Mood Appropriate AVPU Assessment: Alert Diagnostics - Vital Signs Vital Signs Temp Pulse Resp BP Pulse Ox 04/18/18 15:40 18 04/18/18 13:22 97.3 F 90 16 177/100 98 - Laboratory Lab Statement: Any lab studies that have been ordered have been reviewed, and results considered in the medical decision making process. Back Pain Course/Dx - Course Course Of Treatment: During the course of treatment, the patient is evaluated for worsening back pain 1 week. She has a confirmed 25% L5 vertebral superior endplate compression fracture. CT of the lumbar spine was obtained the axial plane, approximately 25% compression L5 vertebra at the superior endplate with 2 mm retropulsion of the superior fragments. This is similar to degree when compared to previous exam. I have given her a trial of tapering steroids as well as pain management. She will follow-up with Dr. Gomez. - Diagnoses Provider Diagnoses: Lumbar radiculopathy Discharge - Sign-Out/Discharge Documenting (check all that apply): Patient Departure - Discharge Plan Condition: Stable Disposition: HOME Prescriptions: oxyCODONE/Acetamin 10/325(NF) [Percocet 10/325 (NF)] 1 tab PO Q6H #20 tab MDD 4 predniSONE TAB* [Deltasone 20 MG TAB*] 20 mg PO DAILY #18 tab Patient Education Materials: Vertebral Compression Fracture (ED), Lumbar Radiculopathy (ED) Referrals: Demi Amaral NP [Primary Care Provider] - Kathya Ordonez MD [Medical Doctor] - Additional Instructions: Prednisone: Take 3 tabs on day 1, 2, 3; Take 2 tabs on day 4, 5, 6; Take 1 tab on day 7, 8, 9 Oxycodone 10/325 up to every 6 hours as needed for pain Do not take Tylenol while taking this medication quadrant Please follow up with Dr. Gomez Moist heat to the area - Billing Disposition and Condition Condition: STABLE Disposition: Home
== END 2018-04-18 17:26 | disposition home or self-care (01) ==
LOC: ED 13:17
DX: M54.16 Radiculopathy, lumbar region (principal); M48.56XA Collapsed vertebra, not elsewhere classified, lumbar region, initial encounter for fracture; M51.34 Other intervertebral disc degeneration, thoracic region; M81.0 Age-related osteoporosis without current pathological fracture; Z79.899 Other long term (current) drug therapy; Z87.891 Personal history of nicotine dependence; Z88.2 Allergy status to sulfonamides; Z88.0 Allergy status to penicillin; Z88.6 Allergy status to analgesic agent
CPT/HCPCS: 72128; 72131; 99282; A9270-GY